=== PATIENT | female | born 1965 | race Caucasian/White ===

== ENCOUNTER 2016-09-21 21:20 | Emergency (ER) | payer OTHER ==
[~2016-09-21] VITALS: Ht 167.6 cm; Wt 54.6 kg
[2016-09-21 21:26] VITALS: TEMP 37.4; Ht 167.6 cm; Wt 54.6 kg
[2016-09-21] MEDS ORDERED: IBUPROFEN 600 MG TAB PO STA (21:47)
--- NOTE | 2016-09-21 22:34 | DIAGNOSTIC IMAGING REPORT ---
RIGHT ANKLE MIN 3 VIEWS ROUTINE, RIGHT FOOT MIN 3 VIEWS ROUTINE CLINICAL HISTORY: pain and swelling s/p fall Right. Right foot and ankle pain. COMPARISON STUDY: None. FINDINGS: Mild lateral soft tissue swelling within the right ankle. Small posterior calcaneal spur. No acute fracture or dislocation within the right ankle or right foot. IMPRESSION: No fracture or dislocation within the right ankle or right foot. Electronically signed by: Marcellus Oconnor M.D. 09/21/2016 10:32 PM Dictated Date/Time: 09/21/2016 10:29 PM
[2016-09-21 23:37] VITALS: BP 96/66; PULSE 82; O2SAT 94
--- NOTE | 2016-09-22 01:46 | EMERGENCY ROOM VISIT NOTE ---
History Report prepared by Jens: Madelyn Sheridan Under the Supervision of: Dr. Rk Andujar M.D. First contact with patient: 21:43 Chief Complaint: ANKLE PAIN Stated Complaint: FALL/ RT ANKLE PAIN/ SOME ALCOHOL History of Present Illness The patient is a 51 year old female who presents to the Emergency Room with complaints of constant right ankle pain beginning [employer]. The patient rolled her right ankle while she was walking. She denies falling to the ground. Since then , she has been experiencing diffuse pain of the right ankle, worse on the lateral aspect of the foot. Movement exacerbates her pain, and she rates her pain as a 10/10 in severity. The patient admits to drinking "3 or 4 beers." She denies any right knee pain or any other injury. Source of History: patient Onset: [employer] Position: ankle (right) Symptom Intensity: 10/10 Timing: constant Modifying Factors (Worsening): movement Note: The patient denies right knee pain or any other injury. Review of Systems See HPI for pertinent positives & negatives. A total of 10 systems reviewed and were otherwise negative. Past Medical & Surgical Medical Problems: (1) Bilateral knee pain (2) Bilateral knee pain (3) Chronic obstructive pulmonary disease (4) Cough (5) UTI (urinary tract infection) Family History No pertinent history stated. Social History Smoking Status: Current Every Day Smoker Alcohol Use: occasionally Current/Historical Medications No Active Prescriptions or Reported Meds Allergies Coded Allergies: No Known Allergies (Unverified , 10/01/14) Physical Exam Vital Signs Date Time Temp Pulse Resp B/P Pulse Ox O2 Delivery O2 Flow Rate FiO2 09/21/16 23:37 82 18 96/66 94 09/21/16 23:14 82 18 96/66 94 Room Air 09/21/16 21:26 37.4 90 18 118/86 98 Room Air Physical Exam Constitutional: Vital signs reviewed. Eyes: Pupils are equal round reactive to light. Conjunctiva are noninjected. ENT: Pharynx is clear without erythema or exudate. Mucous membranes are moist. Neck supple without meningeal signs. Respiratory: Clear to auscultation bilaterally. Breath sounds are equal bilaterally. Cardiovascular: Regular rate and rhythm. No rubs or gallops. GI: Soft, nondistended and nontender. Bowel sounds are present. Musculoskeletal: Diffuse tenderness to the right ankle, greatest on the lateral malleolus without joint laxity with some mild tenderness to the base of the 5th metatarsal. Integumentary: No cyanosis. Neurological: The patient is awake and alert. No focal deficits. Psychiatric: Normal affect. Medical Decision & Procedures ER Provider Diagnostic Interpretation: Radiology results as stated below per my review and the radiologist's interpretation: RIGHT ANKLE MIN 3 VIEWS ROUTINE, RIGHT FOOT MIN 3 VIEWS ROUTINE CLINICAL HISTORY: pain and swelling s/p fall Right. Right foot and ankle pain. COMPARISON STUDY: None. FINDINGS: Mild lateral soft tissue swelling within the right ankle. Small posterior calcaneal spur. No acute fracture or dislocation within the right ankle or right foot. IMPRESSION: No fracture or dislocation within the right ankle or right foot. Electronically signed by: Marcellus Oconnor M.D. 09/21/2016 10:32 PM Dictated Date/Time: 09/21/2016 10:29 PM RIGHT ANKLE MIN 3 VIEWS ROUTINE, RIGHT FOOT MIN 3 VIEWS ROUTINE CLINICAL HISTORY: pain and swelling s/p fall Right. Right foot and ankle pain. COMPARISON STUDY: None. FINDINGS: Mild lateral soft tissue swelling within the right ankle. Small posterior calcaneal spur. No acute fracture or dislocation within the right ankle or right foot. IMPRESSION: No fracture or dislocation within the right ankle or right foot. Electronically signed by: Marcellus Oconnor M.D. 09/21/2016 10:32 PM Dictated Date/Time: 09/21/2016 10:29 PM Medications Administered Medications (Trade) Dose Ordered Sig/Miriam Route Start Time Stop Time Status Last Admin Dose Admin Ibuprofen (Motrin Tab) 600 mg NOW STAT PO 09/21/16 21:47 09/21/16 21:49 DC 09/21/16 22:12 600 MG ED Course 214: The patient was evaluated in room A9B. A complete history and physical exam was performed. 2146: Motrin 600 mg PO 2304: I reassessed the patient at this time. She is feeling better and resting comfortably. I discussed the results and treatment plan with the patient. I answered all pertaining questions that she had. She expressed understanding and verbalized agreement. The patient will be discharged home. Medical Decision This is a 51-year-old female who presents with an ankle injury. I did perform a limited focused review of portions of the patient's old chart on the electronic medical record. The patient has had no recent pertinent visits to this hospital. I did evaluate the patient as noted above. The patient presents after twisting her right ankle. She denies falling to the ground or any other injuries. I did order and personally review the patient's right ankle and foot x-rays as described above. There is no evidence of acute fracture or dislocation. I did discuss the test results with the patient. She was placed in an ankle splint and given crutches. She was advised follow closely with her doctor for reevaluation next week. She was discharged in good condition. Impression Primary Impression: Right ankle injury Scribe Attestation The scribe's documentation has been prepared under my direct and personally reviewed by me in its entirety. I confirm that the note above accurately reflects all work, treatment, procedures, and medical decision making performed by me. Departure Information Dispostion Home / Self-Care Prescriptions No Active Prescriptions or Reported Meds Referrals Freddy Hoffman M.D. (PCP) Forms HOME CARE DOCUMENTATION FORM, IMPORTANT VISIT INFORMATION, Work Instructions Patient Instructions Ankle Sprain, [facility] Additional Instructions You have been examined and treated today on an emergency basis only. This is not a substitute for, or an effort to provide, complete comprehensive medical care. It is impossible to recognize and treat all injuries or illnesses in a single emergency department visit. It is therefore important that you follow up closely with your physician next week. Call as soon as possible for an appointment. Return for worsening symptoms or if you develop any other concerning symptoms. Problem Qualifiers Primary Impression: Right ankle injury Encounter type: initial encounter Qualified Codes: S99.911A - Unspecified injury of right ankle, initial encounter
== END 2016-09-21 23:42 | disposition home or self-care (01) ==
LOC: C.EDA 21:20 → EDBD 21:20 → C.EDA 23:42
DX: S99.911A Unspecified injury of right ankle, initial encounter (principal); X58.XXXA Exposure to other specified factors, initial encounter; J45.909 Unspecified asthma, uncomplicated; F17.200 Nicotine dependence, unspecified, uncomplicated; Z87.440 Personal history of urinary (tract) infections